=== PATIENT | male | born 1955 | race Two or more races ===

== ENCOUNTER 2024-03-20 08:10 | Emergency (ER) | payer BC, MEDICARE ==
[~2024-03-20] VITALS: Ht 170.2 cm; Wt 88.0 kg
[2024-03-20 09:05] VITALS: BP 162/78; PULSE 66; RESP 16; TEMP 97.2; O2SAT 96
== END 2024-03-20 09:20 | disposition home or self-care (01) ==
LOC: ER 08:10
DX: S11.91XD Laceration without foreign body of unspecified part of neck, subsequent encounter (principal); Z88.8 Allergy status to other drugs, medicaments and biological substances; X58.XXXD Exposure to other specified factors, subsequent encounter